=== PATIENT | female | born 2005 | race African-American/Black ===

== ENCOUNTER 2025-06-04 17:33 | Emergency (ER) | payer MEDICAID ==
[~2025-06-04] VITALS: Ht 162.6 cm; Wt 70.0 kg
[2025-06-04 17:37] VITALS: O2SAT 98
[2025-06-04 20:04] LABS: BASOPHILS % 0.4 % (0.0-2.0); EOSINOPHILS % 0.5 % (0.0-5.0); HEMATOCRIT. 38.0 % (36.0-48.0); HEMOGLOBIN. 12.8 g/dL (12.0-16.0); LYMPHOCYTES % 18.0 % (20.0-50.0); MEAN PLATELET VOLUME 8.0 fl (7.4-10.4); MONOCYTES % 5.1 % (2.0-8.0); NEUTROPHILS % 76.0 % (40.0-76.0); PLATELET 271 x1000/uL (130-400); RED BLOOD CELL COUNT 4.32 mill/uL (4.2-5.4); RED CELL DISTRIBUTION WIDTH 13.3 % (11.6-14.6)
[2025-06-04 20:14] LABS: INR 0.9
[2025-06-04 20:39] LABS: CREATININE 0.8 mg/dL (0.6-1.0)
[2025-06-04 20:40] LABS: UREA NITROGEN BLOOD 6 mg/dL (9-23)
[2025-06-04 21:00] LABS: B-HCG QUANTITATIVE > 200000 mIU/mL (<6)
[2025-06-04 23:01] VITALS: BP 113/58; PULSE 101; RESP 20; TEMP 36.7; O2SAT 100
== END 2025-06-04 23:23 | disposition home or self-care (01) ==
LOC: ER 17:33
DX: O26.891 Other specified pregnancy related conditions, first trimester (principal); R10.9 Unspecified abdominal pain; R10.2 Pelvic and perineal pain; R42 Dizziness and giddiness; Z3A.10 10 weeks gestation of pregnancy
CPT/HCPCS: 80048; 84702; 85025; 85610; 86850; 86900; 86901; 36415; 76801; 76817; 99284; Z7610